=== PATIENT | female | born 1945 | race African-American/Black ===

== ENCOUNTER 2019-08-18 04:19 | Inpatient (IN) | payer OTHER ==
[~2019-08-18] VITALS: Ht 157.5 cm; Wt 45.4 kg
[2019-08-18 04:22] VITALS: BP 161/82
[2019-08-18 05:16] LABS: ABSOLUTE NEUTROPHILS 5.6 thou/uL (1.4-8.2); BASOPHILS 0.4 % (0.0-2.0); EOSINOPHILS 0.6 % (0.0-3.0); HEMATOCRIT 39.9 % (37.0-47.0); HEMOGLOBIN 12.9 gm/dL (12.0-15.0); LYMPHOCYTES 19.6 % (24.0-44.0); MCH 28.6 pg (26.0-34.0); MCHC 32.3 g/dL (28.0-37.0); MCV 88.5 fL (80.0-100.0); MONOCYTES 4.8 % (1.0-8.0); PLATELET COUNT 277 thou/uL (150-400); POLYS 74.6 % (36.0-66.0); RBC 4.51 mil/uL (4.20-5.00); RDW 15.5 % (10.5-14.5); WBC 7.5 thou/uL (4.0-11.0)
[2019-08-18 05:21] LABS: CALCIUM 8.9 mg/dL (8.5-10.1); POTASSIUM 3.4 mmol/L (3.5-5.1)
[2019-08-18 05:31] LABS: ALBUMIN 3.7 g/dL (3.4-5.0); TOTAL BILIRUBIN 0.3 mg/dL (<0.1-1.0); TOTAL PROTEIN 7.8 g/dL (6.4-8.2); TROPONIN-I 0.18 ng/mL (<0.06)
[2019-08-18 05:46] LABS: INR 1.2; PROTIME 12.7 Seconds (9.3-11.4)
[2019-08-18 06:14] LABS: D-DIMER 1.08 ug/mLFEU (0.19-0.50)
[2019-08-18 06:34] VITALS: BP 135/75
[2019-08-18 07:45] VITALS: BP 130/68
[2019-08-18 08:32] LABS: URINE BILIRUBIN NEGATIVE (Negative); URINE BLOOD NEGATIVE (Negative); URINE CLARITY CLEAR; URINE COLOR YELLOW; URINE GLUCOSE-RANDOM* NEGATIVE (Negative); URINE KETONES NEGATIVE (Negative); URINE NITRITE-REFLEX NEGATIVE (Negative); URINE PROTEIN (DIPSTICK) NEGATIVE (Negative); URINE UROBILINOGEN 0.2 E.U./dl (0.2-1.0)
[2019-08-18 08:47] LABS: URINE LEUKOCYTES-REFLEX 2+ (Negative)
[2019-08-18 08:52] LABS: CASTS None Seen /LPF (None Seen); CRYSTALS None Seen /LPF (None Seen); SQUAMOUS 0-3 Few /LPF (0-3); URINE RBC None Seen /HPF (0-2); URINE WBC-REFLEX 6-15 Few /HPF (0-5)
[2019-08-18 08:53] LABS: BACTERIA-REFLEX 1-9 Few /HPF (None Seen)
--- NOTE | 2019-08-18 10:29 | EKG ---
[address] [place] [address] ELECTROCARDIOGRAM REPORT Name: GREGORIA BARAHONA Room #: 361-P ADM IN M.R.#: [id number] Admission: 08/18/19 Attend Phys: Aguilar Womack MD Discharge: Date of : 45 Report #: [id number] THIS REPORT FOR: //name// [facility] ED Test Date: 2019-08-18 Test Time: 04:41:18 Pat Name: GREGORIA BARAHONA Department: Room: 361 Gender: F Arm Rest Builder: MPARK : 1945 Requested By: Le Simpson Order Number: [id number] MD: Fritz Gonzalez Measurements Intervals [place] Rate: 96 P: 63 W[place]: 161 QRS: -43 QRSD: 166 T: 114 QT: 441 QTc: 558 Interpretive Statements Sinus rhythm Left atrial enlargement Left bundle branch block No previous ECG available for comparison Electronically Signed On 08-18-2019 10:29:02 OPERATIONS RESEARCH ANALYST by Fritz Gonzalez [email or web address] <ELECTRONICALLY SIGNED> By: Fritz Gonzalez MD 08/18/19 1029 0441 0441 Fritz Gonzalez MD /CARLA
--- NOTE | 2019-08-18 11:14 | HC ---
[facility] [place] [address] CONSULTATION Name: GREGORIA BARAHONA Room #: 361-P [facility] IN M.R.#: [id number] Admission: 08/18/19 Attend Phys: Aguilar Womack MD Discharge: Date of : 45 Report #: [id number] THIS REPORT FOR: //name// CC: Aguilar Barajas DATE OF SERVICE: 08/18/2019 CARDIOLOGY CONSULTATION INDICATION: Syncope. HISTORY OF PRESENT ILLNESS: This is a pleasant 74-year-old female with a history of hypercholesterolemia, presenting with a syncopal episode. Around 3:30 a.m. this morning, she had gone to the bathroom to urinate. She was standing at the sink washing up when she apparently started to make some gurgling noises. Her had heard this and went to the bathroom. She was about to collapse, appear diaphoretic. Her caught her and helped her get back to the bed. She reports that she was unconscious for quite some time. The patient denies any chest pains, dyspnea or palpitations prior to the event. She reports no recent episodes of fever, chills or diarrhea. She has been eating as per her normal. She has been eating without any major issues. Her reports that she walks a little slower and has to rest at times. There is no history of chest pains or dyspnea with exertion. PAST MEDICAL HISTORY: Denies any history of hypertension, diabetes, CAD or CVA. Has hypercholesterolemia, not on medication. The reports that she has been getting more forgetful, has not had any formal evaluation for Alzheimer's. ALLERGIES: None. MEDICATIONS: None. SOCIAL HISTORY: Denies tobacco or alcohol use. FAMILY HISTORY: Negative for premature CAD. REVIEW OF SYSTEMS: A full 10-point review of systems performed. Only the pertinent positives and negatives are described in the HPI. PHYSICAL EXAMINATION: VITAL SIGNS: Blood pressure is 130/70, heart rate is 90 beats per minute. GENERAL APPEARANCE: An elderly appearing female in no acute distress. HEENT: Normocephalic, atraumatic. Oral mucosa moist. NECK: Supple. LUNGS: Slightly diminished breath sounds at the bases. [facility] [address] [place] [address] CONSULTATION Name: GREGORIA BARAHONA Room #: 361-P [facility] IN .R.#: [id number] Admission: 08/18/19 Attend Phys: Aguilar Womack MD Discharge: Date of : 45 Report #: [id number] CARDIAC: Regular rate and rhythm, S1, S2 positive. ABDOMEN: Soft, nontender. EXTREMITIES: No edema, no cyanosis. ECG reveals sinus rhythm, left bundle-branch block. LABORATORY VALUES: Troponin is 0.18 and 0.17. White count 7.5, hemoglobin is 12.9, creatinine is 1.0. ASSESSMENT AND PLAN: 1. Syncope, by the patient's history, may be related to a vasovagal event. It occurred after she had gone to the bathroom. A CT scan of the head is negative for acute process. I did recommend staying well hydrated. We will need to obtain an echo and an ischemic evaluation. 2. Minimal troponin elevation/left bundle branch block, no baseline ECG to compare. She does not offer any complaints of angina or dyspnea. However, the troponin elevation is concerning. I have discussed with the patient and her the pros and cons of noninvasive stress testing versus cardiac catheterization. They would like to proceed with a stress test and echocardiogram first. 3. Hypercholesterolemia, continue with Dietary restrictions. 4. Memory loss, may need a dementia workup. <ELECTRONICALLY SIGNED> By: Fritz Gonzalez MD 08/18/19 1114 0900 0936 Fritz Gonzalez MD /nt
[2019-08-18 11:20] VITALS: BP 142/83
[2019-08-18 15:23] VITALS: BP 126/76
[2019-08-18 19:20] VITALS: BP 129/78
[2019-08-19 03:56] VITALS: BP 122/66
[2019-08-19 08:21] VITALS: BP 143/83
--- NOTE | 2019-08-19 14:26 | 2DMMODE ---
[facility] [address] [place] [address] 2 D/M-MODE ECHOCARDIOGRAM Name: GREGORIA BARAHONA Room #: 361-P [facility] IN .R.#: [id number] Admission: 08/18/19 Attend Phys: Aguilar Womack MD Discharge: Date of : 45 Report #: [id number] THIS REPORT FOR: //name// APPROVED REPORT Study performed: 08/19/2019 13:32:53 EXAM: Comprehensive 2D, Doppler, and color-flow Echocardiogram Patient Location: Bedside Room #: 361 Status: routine BSA: 1.42 HR: 72 bpm BP: 143/83 mmHg Rhythm: NSR Other Information Study Quality: Good Indications Syncope Elevated Troponin Hypertension/HDD 2D Dimensions RVDd: 37.72 mm IVSd: 13.05 (7-11mm) LVOT Diam: 16.80 (18-24mm) LVDd: 50.01 mm PWd: 13.96 (7-11mm) Ascending Ao: 32.86 (22-36mm) LVDs: 44.30 (25-40mm) Aortic Root: 29.54 mm IVC: 13.00 mm Volumes Left Atrial Volume (Systole) Single Plane 4CH: 54.62 mL Single Plane 2CH: 90.80 mL LA ESV Index: 54.00 mL/m2 Aortic Valve AoV Peak Jose.: 1.50 m/s AO Peak Gr.: 8.98 mmHg LVOT Max P.35 mmHg LVOT Max V: 1.16 m/s LEONARDA Vmax: 1.71 cm2 Pulmonary Valve PV Peak Jose.: 1.20 m/s PV Peak Gr.: 5.[address] [facility] [address] [place] [address] 2 D/M-MODE ECHOCARDIOGRAM Name: GREGORIA BARAHONA Room #: 361-[facility] IN [facility]#: [id number] Admission: 08/18/19 Attend Phys: Aguilar Womack MD Discharge: Date of : 45 Report #: [id number] Tricuspid Valve TR Peak Jose.: 2.75 m/s TR Peak Gr.: 30.14 mmHg PA Pressure: 35.00 mmHg Left Ventricle The left ventricle is normal size. There is hypokinesis of the anteroseptal and inferior randhawa. Mild concentric left ventricular hypertrophy. Left ventricular ejection fraction is severely decreased. LVEF is 25%. Grade I - abnormal relaxation pattern. Right Ventricle The right ventricle is normal size. The right ventricular systolic function is normal. Atria Left atrium is dilated. The right atrium size is normal. Aortic Valve The aortic valve is normal in structure. No aortic regurgitation is present. There is no aortic valvular stenosis. Mitral Valve The mitral valve is normal in structure. Mild to moderate mitral regurgitation. No evidence of mitral valve stenosis. Tricuspid Valve The tricuspid valve is normal in structure. There is trace to mild tricuspid regurgitation. Estimated PAP 35 mmHg. There is mild pulmonary hypertension. Pulmonic Valve The pulmonary valve is normal in structure. There is no pulmonic valvular regurgitation. Great Vessels The aortic root is normal in size. IVC is normal in size and collapses >50% with inspiration. Pericardium Small circumferential pericardial effusion. <Conclusion> The left ventricle is normal size. Mild concentric left ventricular hypertrophy. [facility] [address] [address] 2 D/M-MODE ECHOCARDIOGRAM Name: GREGORIA BARAHONA Room #: 361-P ADM IN M.R.#: [id number] Admission: 08/18/19 Attend Phys: Aguilar Womack MD Discharge: Date of : 45 Report #: [id number] Left ventricular ejection fraction is severely decreased. Grade I - abnormal relaxation pattern. The right ventricle is normal size. Left atrium is dilated. The aortic valve is normal in structure. Mild to moderate mitral regurgitation. There is trace to mild tricuspid regurgitation. Estimated PAP 35 mmHg. <ELECTRONICALLY SIGNED> By: Fritz Gonzalez MD 08/19/19 1425 24 24 Fritz Gonzalez MD /INF
[2019-08-19 17:06] VITALS: BP 118/70
[2019-08-19 19:40] VITALS: BP 117/69
[2019-08-20] VITALS (13 sets, daily range): BP systolic 118–142; BP diastolic 59–80
[2019-08-20 08:32] LABS: ANION GAP 5 mmol/L (7-16); BUN 19 mg/dL (7-18); CALCIUM 8.7 mg/dL (8.5-10.1); CHLORIDE 106 mmol/L (98-107); CHOLESTEROL 245 mg/dL (<200); CO2 30 mmol/L (21-32); CREATININE 0.8 mg/dL (0.6-1.0); GLUCOSE 96 mg/dL (74-106); HDL CHOLESTEROL 77 mg/dL (>40); LDL CHOLESTEROL 152 mg/dL (<100); POTASSIUM 4.1 mmol/L (3.5-5.1); SODIUM 141 mmol/L (136-145); TC:HDL 3.2 Ratio (Not establshd); TRIGLYCERIDE 81 mg/dL (<150); VLDL 16 mg/dL (<40)
--- NOTE | 2019-08-20 11:26 | CATHLAB ---
[place] [address] [address] [facility] [place] [address] INVASIVE PROCEDURE REPORT Name: GREGORIA BARAHONA Room #: 216-P [facility] IN ..#: [id number] Admission: 08/18/19 Attend Phys: Aguilar Womack MD Discharge: Date of : 45 Report #: [id number] THIS REPORT FOR: //name// APPROVED REPORT Study performed: 08/20/2019 07:41:15 Patient Details Patient Status: Out-Patient Room #: The patient is a 74 year-old female Event Personnel Fritz Gonzalez Naturopathic Oncology Provider, José Miguel Jessica, Tsering Fraga RTR Narayan Rosa Marie RN RN, Neena Tsang RN insulation technician Performed Left Heart Cath w/or w/o Coronaries [id number] [facility] Indication Dyspnea, CardiomyopathyPositive stress test, The patient presented with a syncopal episode, found to have an elevated troponin level with a left bundle branch block. Risk Factors HypercholesterolemiaPhysical Activity Procedure Narrative The Right Groin^ was infiltrated with 1% Lidocaine subcutaneous anesthesia. A PINNACLE 4FR Sheath #[id number] sheath was inserted into the RFA^. Coronary angiography was performed using coronary diagnostic catheters. The right coronary system was accessed and visualized with a JR4 catheter. The left coronary system was accessed and visualized with a JL4 catheter. The left ventricle was accessed and visualized with a PIGTAIL catheter. Left ventricular/Aortic Valve gradient assessed . Hemostasis was obtained with manual pressure following sheath removal without any complications. The patient tolerated the procedure well and there were no complications associated with the procedure. There was no hematoma. Intraoperative Conscious Sedation Sedation start time: 8.28 Case end Time: 8.57 Fentanyl 25 mcg Versed 0.5 mg [facility] [address] [place] [address] INVASIVE PROCEDURE REPORT Name: GREGORIA BARAHONA Room #: 216-P [facility] IN [facility].#: [id number] Admission: 08/18/19 Attend Phys: Aguilar Womack MD Discharge: Date of : 45 Report #: [id number] Fluoro Time: 2.09 minutes Dose: DAP 983.00 cGycm2 130 mGy Contrast Type and Amount: Omnipaque 55 ml Coronary Angiography The patient's coronary anatomy is right dominant. Diagnostic Cath Left Main The left main artery is a large-caliber vessel, patent with no flow-limiting lesions. LAD The LAD is a moderate size caliber vessel, traversing the anterior wall and wrapping around the apex. This vessel is patent with no flow-limiting lesions. Diagonal 1 This is a small-caliber vessel, patent with no flow-limiting lesions. Diagonal 2 This is a small to moderate size caliber vessel with a mild to moderate ostial stenosis, 30-40%. Circumflex This is a moderate size caliber vessel with a mild stenosis at the proximal segment, 30%. OM1 This is a small-caliber vessel, patent with no flow-limiting lesions. OM2 This is a moderate size caliber vessel, patent with no flow-limiting lesions. Right Coronary This is a moderate size caliber vessel, dominant with no flow-limiting lesions. R PDA This is a moderate size caliber vessel, patent with no flow-limiting lesions. RPLV This is a moderate size caliber vessel, patent with no flow-limiting lesions. Left Ventriculography Left Ventriculography was not performed. Ejection Fraction was 25-30% based off patient's Nuclear Cardiac Stress Test. Hemodynamics The aortic pressure is 139/64 mmHg with a mean of 26 mmHg. The left ventricular pressure is 138/11 mmHg with a mean of mmHg. The left ventricular end diastolic pressure is 19 mmHg. Conclusion 1. Severe, nonischemic cardiomyopathy. 2. Mild, nonobstructive CAD. [address] [address] INVASIVE PROCEDURE REPORT Name: GREGORIA BARAHONA Room #: 216-P [facility] IN ..#: [id number] Admission: 08/18/19 Attend Phys: Aguilar Womack MD Discharge: Date of : 45 Report #: [id number] 3. Recommend guideline directed medical therapy and risk factor management. <ELECTRONICALLY SIGNED> By: Fritz Gonzalez MD 08/20/19 1125 24 24 Fritz Gonzalez MD /INF
[2019-08-21 01:33] VITALS: BP 112/62
[2019-08-21 02:31] LABS: GLYCOHEMOGLOBIN (HGB A1C) 5.7 % (4.8-5.6)
[2019-08-21 04:02] VITALS: BP 112/63
[2019-08-21 05:33] LABS: HEMATOCRIT 34.6 % (37.0-47.0); HEMOGLOBIN 11.2 gm/dL (12.0-15.0); MCH 28.7 pg (26.0-34.0); MCHC 32.3 g/dL (28.0-37.0); RBC 3.89 mil/uL (4.20-5.00); RDW 15.1 % (10.5-14.5); WBC 6.5 thou/uL (4.0-11.0)
[2019-08-21 07:25] LABS: CALCIUM 8.7 mg/dL (8.5-10.1); CREATININE 0.8 mg/dL (0.6-1.0); POTASSIUM 4.1 mmol/L (3.5-5.1)
[2019-08-21 07:30] VITALS: BP 121/71
[2019-08-21] MEDS ORDERED: COREG6.25 MG PO (09:35)
[2019-08-21] MEDS ORDERED: ASPIR 8181 MG PO (09:35)
[2019-08-21 11:00] VITALS: BP 124/62
[2019-08-21] MEDS ORDERED: ACETAMINOPHEN325 M1 PO (11:59)
[2019-08-21] MEDS ORDERED: CALTRATE-600 W1 EACH PO (11:59)
[2019-08-21 12:12] VITALS: BP 124/62
== END 2019-08-21 13:46 | disposition home or self-care (01) | DRG 287 ==
LOC: ER 04:19 → 3W 06:11 → EROBS 06:11 → 3W 07:56 → 2N 08-20 09:29 → ENTRNSPT 08-21 13:25 → EDTRNSPTSTS 08-21 13:27 → 2N 08-21 13:46
PROVIDERS: Emergency Medicine Emergency Medical Services; Internal Medicine Cardiovascular Disease; ADMIT Hospitalist
PROC: B2111ZZ Fluoroscopy of Multiple Coronary Arteries using Low Osmolar Contrast (ICD-10-PCS; principal; 2019-08-18)
PROC: 4A023N7 Measurement of Cardiac Sampling and Pressure, Left Heart, Percutaneous Approach (ICD-10-PCS; principal; 2019-08-18)
DX: I25.10 Atherosclerotic heart disease of native coronary artery without angina pectoris (principal); E46 Unspecified protein-calorie malnutrition; I44.7 Left bundle-branch block, unspecified; I42.8 Other cardiomyopathies; E78.00 Pure hypercholesterolemia, unspecified; R41.3 Other amnesia; I50.9 Heart failure, unspecified; G47.00 Insomnia, unspecified; E78.5 Hyperlipidemia, unspecified; I34.0 Nonrheumatic mitral (valve) insufficiency; Z79.82 Long term (current) use of aspirin; Z68.1 Body mass index [BMI] 19.9 or less, adult; Z79.899 Other long term (current) drug therapy
CPT/HCPCS: 10081; 10879

== ENCOUNTER → 2019-09-03 | Outpatient (CLI) | payer OTHER ==
[~2019-09-03] MED LIST: ACETAMINOPHEN325 M1 PO; ASPIR 8181 MG PO; CALTRATE-600 W1 EACH PO; COREG6.25 MG PO
== END ==
LOC: SJCVC 16:13
DX: I25.10 Atherosclerotic heart disease of native coronary artery without angina pectoris (principal); I42.9 Cardiomyopathy, unspecified; E78.00 Pure hypercholesterolemia, unspecified; R94.31 Abnormal electrocardiogram [ECG] [EKG]; I44.7 Left bundle-branch block, unspecified; Z79.82 Long term (current) use of aspirin

== ENCOUNTER 2020-07-07 16:14 | Inpatient (IN) | payer OTHER ==
[~2020-07-07] VITALS: Ht 154.9 cm; Wt 49.9 kg
[2020-07-07 16:46] VITALS: BP 134/86
[2020-07-07 18:31] LABS: ABSOLUTE NEUTROPHILS 4.2 thou/uL (1.4-8.2); BASOPHILS 0.7 % (0.0-2.0); EOSINOPHILS 0.4 % (0.0-3.0); HEMATOCRIT 34.5 % (37.0-47.0); HEMOGLOBIN 11.1 gm/dL (12.0-15.0); LYMPHOCYTES 17.8 % (24.0-44.0); MCH 27.6 pg (26.0-34.0); MCHC 32.1 g/dL (28.0-37.0); MCV 85.9 fL (80.0-100.0); MONOCYTES 7.5 % (1.0-8.0); PLATELET COUNT 249 thou/uL (150-400); POLYS 73.6 % (36.0-66.0); RBC 4.02 mil/uL (4.20-5.00); RDW 15.7 % (10.5-14.5); WBC 5.7 thou/uL (4.0-11.0)
[2020-07-07 18:34] LABS: CALCIUM 9.4 mg/dL (8.5-10.1); POTASSIUM 4.1 mmol/L (3.5-5.1)
[2020-07-07 18:45] LABS: ALBUMIN 3.2 g/dL (3.4-5.0); TOTAL BILIRUBIN 1.1 mg/dL (0.2-1.0); TOTAL PROTEIN 6.6 g/dL (6.4-8.2); TROPONIN-I 0.31 ng/mL (<0.06)
[2020-07-07 20:17] VITALS: BP 129/90
[2020-07-07 21:32] VITALS: BP 132/79
[2020-07-07 21:45] VITALS: BP 147/78
--- NOTE | 2020-07-07 21:45 | NUR ---
Pt. admitted to the unit from the emergency room accompanied by staff. She is alert and oriented times three. Pt. offers no c/o pain or discomfort. Bed alarm is on.
[2020-07-08] VITALS: BP 116/60
[2020-07-08 04:23] VITALS: BP 121/80
[2020-07-08 06:10] LABS: HEMATOCRIT 34.2 % (37.0-47.0); HEMOGLOBIN 10.8 gm/dL (12.0-15.0); MCH 27.2 pg (26.0-34.0); MCHC 31.6 g/dL (28.0-37.0); MCV 86.2 fL (80.0-100.0); RBC 3.96 mil/uL (4.20-5.00); RDW 15.7 % (10.5-14.5); WBC 5.8 thou/uL (4.0-11.0)
[2020-07-08 06:33] LABS: ANION GAP 14 mmol/L (7-16); BUN 17 mg/dL (7-18); CALCIUM 8.7 mg/dL (8.5-10.1); CHLORIDE 107 mmol/L (98-107); CO2 26 mmol/L (21-32); GLUCOSE 101 mg/dL (74-106); POTASSIUM 3.6 mmol/L (3.5-5.1); SODIUM 147 mmol/L (136-145)
--- NOTE | 2020-07-08 06:45 | NUR ---
Pt. refused to have ivp lasix given. She was educated on the medication, but pt. kept telling me no,no.
[2020-07-08 08:18] LABS: CHOLESTEROL 175 mg/dL (<200); HDL CHOLESTEROL 44 mg/dL (>40); LDL CHOLESTEROL 114 mg/dL (<100); TRIGLYCERIDE 86 mg/dL (<150); VLDL 17 mg/dL (<40)
--- NOTE | 2020-07-08 08:36 | 2DMMODE ---
[facility] [place] [address] 2 D/M-MODE ECHOCARDIOGRAM Name: GREGORIA BARAHONA Room #: 204-P ADM IN M.R.#: [id number] Admission: 07/07/20 Attend Phys: Brian Angel MD Discharge: Date of : 45 Report #: [id number] THIS REPORT FOR: cc: Maren Barajas RN, Anne H. RN Lundgren, Craig H. MD [facility] ~ APPROVED REPORT Study performed: 07/08/2020 07:18:57 EXAM: Comprehensive 2D, Doppler, and color-flow Echocardiogram Patient Location: Bedside Room #: 204 Status: routine BSA: 1.40 HR: 90 bpm BP: 121/80 mmHg Rhythm: LBBB Other Information Study Quality: Excellent Indications Elevated troponin, edema, short of breath. Hx: CHF, mild CAD, cardiomyopathy. 2D Dimensions RVDd: 39.47 mm IVSd: 12.01 (7-11mm) LVOT Diam: 19.80 (18-24mm) LVDd: 58.42 mm PWd: 12.11 (7-11mm) Ascending Ao: 34.45 (22-36mm) LVDs: 52.17 (25-40mm) Aortic Root: 33.78 mm Volumes Left Atrial Volume (Systole) Single Plane 4CH: 101.22 mL Single Plane 2CH: 167.48 mL LA ESV Index: 105.00 mL/m2 Aortic Valve AoV Peak Jose.: 1.02 m/s AO Peak Gr.: 4.18 mmHg LVOT Max P.80 mmHg LVOT Max V: 0.67 m/s LEONARDA Vmax: 2.02 cm2 [facility] [address] [place] [address] 2 D/M-MODE ECHOCARDIOGRAM Name: GREGORIA BARAHONA Room #: 204-P [facility] IN [facility]#: [id number] Admission: 07/07/20 Attend Phys: Brian Angel, Discharge: Date of : 45 Report #: [id number] Mitral Valve E/A Ratio: 0.8 MV Decel. Time: 119.65 ms MV E Max Jose.: 0.91 m/s MV A Jose.: 1.12 m/s MV PHT: 34.70 ms IVRT: 65.74 ms Pulmonary Valve PV Peak Jose.: 0.79 m/s PV Peak Gr.: 2.51 mmHg Tricuspid Valve TR Peak Jose.: 2.93 m/s RAP Estimate: 10.00 mmHg TR Peak Gr.: 34.34 mmHg PA Pressure: 44.00 mmHg Left Ventricle Left ventricle is at the upper limits of normal. There is global hypokinesis of the left ventricle. Mild concentric left ventricular hypertrophy. Left ventricular systolic function is severely decreased. LVEF 25%. Mild diastolic dysfunction Right Ventricle The right ventricle is normal size. Right ventricle is mildly hypokinetic. Atria Left atrium is severely dilated. Right atrium is mildly dilated. Aortic Valve The aortic valve is normal in structure. No aortic regurgitation is present. There is no aortic valvular stenosis. Mitral Valve The mitral valve is normal in structure. Severe mitral regurgitation. Tricuspid Valve The tricuspid valve is normal in structure. Trace tricuspid regurgitation. Estimated PAP 40-45mmHg. Pulmonic Valve The pulmonary valve is normal in structure. Mild pulmonic regurgitation. [facility] [place] [address] [place] [address] 2 D/M-MODE ECHOCARDIOGRAM Name: GREGORIA BARAHONA Room #: 204-P ADM IN M.R.#: [id number] Admission: 07/07/20 Attend Phys: Brian Angel, Discharge: Date of : 45 Report #: [id number] Great Vessels The aortic root is normal in size. The ascending aorta is normal in size. IVC is normal in size and collapses <50% with inspiration. Pericardium Small circumferential pericardial effusion. Left pleural effusion. <Conclusion> Left ventricular systolic function is severely decreased. There is global hypokinesis of the left ventricle. LVEF 25%. Mild diastolic dysfunction Left atrium is severely dilated. The aortic valve is normal in structure. No aortic regurgitation or stenosis The mitral valve is normal in structure. Severe mitral regurgitation. Trace tricuspid regurgitation. Estimated PAP 40-45mmHg. Small circumferential pericardial effusion. In comparison with the study dated July 2019, left ventricular systolic function is similar, pericardial effusion is similar, mitral regurgitation is worse <ELECTRONICALLY SIGNED> By: Taiwo Vargas MD, FACC 07/08/20834 4 4 Taiwo Vargas MD, [facility] /INF
[2020-07-08 08:39] VITALS: BP 129/89
[2020-07-08 11:26] VITALS: BP 95/53
[2020-07-08 16:03] VITALS: BP 107/70
--- NOTE | 2020-07-08 16:31 | NUR ---
ASSESSMENT CHARTED - MEDS PER MAR - PATIENT GIVEN LASIX IMES 2 DOSES THIS SHIFT - GOOD RESPONSE - PATIENT INCONTINENT AND ALSO USING THE BSC. DIAZ DIET AND FLUIDS WITH NO CO'S OF NAUSEA. STATES PT CO'S OF LEG CRAMPS OCCASSIONALY. PT SEEN BY GEREATRICS TODAY AND TO HAVE SUPPLEMENT WITH MEALS. AT THE BEDSIDE FOR MOST OF THE DAY. NO CO'S AT THE PRESENT TIME.
[2020-07-08 19:18] VITALS: BP 106/71
[2020-07-09 04:10] VITALS: BP 103/59
--- NOTE | 2020-07-09 04:10 | NUR ---
NO EVENTS OVERNIGHT. PT AO X 3 AT THE BEGINNING OF THE SHIFT BUT GOT CONFUSED THE NIGHT PROGRESSED. IMPULSSIVE GETTING OUT OF BED. FALL PRECAUTIONS IN PLACE. DENIES PAIN. REFUSED SOME EVENING MEDICATIONS. WILL CONTINUE WITH POC
[2020-07-09 05:34] LABS: HEMATOCRIT 34.4 % (37.0-47.0); HEMOGLOBIN 10.9 gm/dL (12.0-15.0); MCHC 31.6 g/dL (28.0-37.0); MCV 85.3 fL (80.0-100.0); RBC 4.03 mil/uL (4.20-5.00); RDW 15.6 % (10.5-14.5)
[2020-07-09 05:53] LABS: CALCIUM 8.8 mg/dL (8.5-10.1); MAGNESIUM 2.2 mg/dL (1.8-2.4); POTASSIUM 3.7 mmol/L (3.5-5.1); TROPONIN-I 0.3 ng/mL (<0.06)
[2020-07-09 08:03] VITALS: BP 109/76
[2020-07-09] MEDS ORDERED: KLOR-CON 1010 MEQ PO (08:25)
[2020-07-09] MEDS ORDERED: ASPIR 8181 MG PO (08:25)
[2020-07-09] MEDS ORDERED: LIPITOR40 MG PO (08:25)
[2020-07-09] MEDS ORDERED: COZAAR 25 MG TA25 M2 PO (08:25)
[2020-07-09] MEDS ORDERED: COREG6.25 MG PO (08:25)
[2020-07-09] MEDS ORDERED: LASIX 40 MG TAB40 M1 PO (08:25)
[2020-07-09 11:51] VITALS: BP 84/52
--- NOTE | 2020-07-09 16:14 | NUR ---
ASSESSMENT CHARTED - MEDS PER SEP - TO CHANGE TO PO LASIX TOMORROW. IV LASIX GIVEN X 1 DOSE. PT REFUSED FLU VACCINE. DIAZ DET AND FLUIDS WITH NO CO'S OF NAUSEA. NO CO'S OF PAIN. PT HAS BEEN SEEN BY [facility] -UP IN THE CHAIR FOR THE DAY - HAS BEEN HER [facility] PATIENT. NO CO'S AT THE PRESENT TIME. STATES SHE IS COMFORTABLE WITH NO NEEDS.
[2020-07-09 16:15] VITALS: BP 95/63
[2020-07-09 20:54] VITALS: BP 119/81
[2020-07-10 03:30] VITALS: BP 108/74
--- NOTE | 2020-07-10 07:24 | NUR ---
PATIENTS CARES WERE ASSUMED AT SHIFT CHANGE. PATIENT WAS ASSESSED AND MEDS WERE PASSED. PATIENT DID SLEEP MOST OF THIS SHIFT. SPOKE WITH THE DAUGHTER (FRANCISCO) PATIENT AND THE FAMILY REFUSED THE STATIN MED ORDERED AT 2100 WAS REFUSED. DAUGHTER STATED THAT THE PATIENT HAS OTHER REMIDIES. THE BED IS IN A LOW AND LOCKED POSITION.
[2020-07-10 07:25] VITALS: BP 111/76
[2020-07-10 09:48] VITALS: BP 111/76
--- NOTE | 2020-07-10 09:50 | NUR ---
Case opened to [facility] for dc planning. Filter Tank Operator visited with the pt and her spouse at bedside. Spouse reports that the pts memory has become worse over the past 6mos to a year. He has not been involved in her medication mngt or f/u appts but now sees that he will have to take charge of those things. The pt stopped taking her meds several months ago and has not gone to a f/u appt with cardiology. He provides 24hr supervision and works out of the home. He is a traffic operator and is occassional out of the house for short periods. They have 4 adult children but 3 live out of town and the one locally is a single parent. He feels they have limited resources for private duty but too many resources for [place] medicaid. He is interested in HH support to help with CHF education and med mngt and therapy for home safetly and home ex program d/t several falls. The pt may need a rwalker as well. Pt agreeable to HH and a rwalker if needed. They live in a split level home with stairs in all directions. Will see how she does in therapy today and start HH referrals and ask for Rwalker script. No hh agency preference indicated as they have not had that service before. Will follow.
[2020-07-10 11:55] VITALS: BP 100/65
--- NOTE | 2020-07-10 12:00 | NUR ---
FAXED REFERRAL TO [facility] SPOKE WITH [facility] IN INTAKE THEY CAN ACCEPT. PT DISCHARGING TODAY TO HOME WITH HH FAXED DC ORDERS/SUMMARY TO [facility] HH RECEIVED CONFIRMATION AND THEY WILL ARRANGE VISITS WITH PT.
--- NOTE | 2020-07-10 13:02 | NUR ---
ASSUMED CARE AT CHANGE OF SHIFT. ALERTX3 WITH CONFUSION, DENIES SOB, DENIES PIAN, QUESTIONS REGARDING MEDICATIONS REVIEWED BY TUTU BLOOM FROM CARDIOLOGY. PT TO DC THIS AFTERNOON WITH HH.
[2020-07-10] MEDS ORDERED: [UNRECOGNIZED DRUG - OTHER] (14:13)
[2020-07-10] MEDS ORDERED: WALKER (14:13)
--- NOTE | 2020-07-10 15:03 | NUR ---
Pt dcing home today with HH. Dc facilities planner has faxed and confirmed soc with Kristian VILLANUEVA. A rwalker has been issued to the pt for home use from the [facility] and script provided to their liason. No other needs noted.
--- NOTE | 2020-07-13 07:55 | EKG ---
[address] [place] [address] ELECTROCARDIOGRAM REPORT Name: GREGORIA BARAHONA Room #: 204-P [facility] IN .R.#: [id number] Admission: 07/07/20 Attend Phys: Brian Angel MD Discharge: 07/10/20 Date of : 45 Report #: [id number] [facility] ED Test Date: 2020-07-07 Test Time: 18:18:47 Pat Name: GREGORIA BARAHONA Department: Room: [facility] Gender: F [employer] Center Technician: JCHAIJO : 1945 Requested By: Jazmyne Sharp Order Number: [id number] MD: Wili Lebron Measurements Intervals [place] Rate: 94 P: 49 AK: 148 QRS: -49 QRSD: 166 T: 117 QT: 448 QTc: 561 Interpretive Statements Sinus rhythm Left atrial enlargement Left bundle branch block Compared to ECG 08/18/2019 04:41:18 No significant changes Electronically Signed On 07-08-2020 7:26:56 SUPERVISOR PUBLIC MESSAGE SERVICE by Wili Lebron [email or web address] <ELECTRONICALLY SIGNED> By: Wili Lebron MD, [facility] 07/08/20 0726 17 17 Wili Lebron MD, FACC /EPI
== END 2020-07-10 16:34 | disposition home health service (06) | DRG 302 ==
LOC: ER 16:14 → 2N 19:59 → EROBS 19:59 → 2N 21:42
PROVIDERS: Nurse Practitioner Family; Physician Assistant; ADMIT Internal Medicine; ATTEND Internal Medicine
DX: I25.10 Atherosclerotic heart disease of native coronary artery without angina pectoris (principal); I50.23 Acute on chronic systolic (congestive) heart failure; E44.1 Mild protein-calorie malnutrition; I42.8 Other cardiomyopathies; R77.8 Other specified abnormalities of plasma proteins; E78.5 Hyperlipidemia, unspecified; F03.90 Unspecified dementia, unspecified severity, without behavioral disturbance, psychotic disturbance, mood disturbance, and anxiety; M81.0 Age-related osteoporosis without current pathological fracture; G47.00 Insomnia, unspecified; R63.4 Abnormal weight loss; I34.0 Nonrheumatic mitral (valve) insufficiency; Z79.899 Other long term (current) drug therapy; Z68.20 Body mass index [BMI] 20.0-20.9, adult; Z91.14 Patient's other noncompliance with medication regimen; Z79.82 Long term (current) use of aspirin; Z28.21 Immunization not carried out because of patient refusal
CPT/HCPCS: 10081

== ENCOUNTER → 2020-07-27 | Outpatient (CLI) | payer OTHER ==
[~2020-07-27] MED LIST changes: +COZAAR 25 MG TA25 M2 PO; +KLOR-CON 1010 MEQ PO; +LASIX 40 MG TAB40 M1 PO; +LIPITOR40 MG PO; +WALKER; +[UNRECOGNIZED DRUG - OTHER]
== END ==
LOC: SJCVC 11:32
PROVIDERS: ATTEND Internal Medicine Cardiovascular Disease
DX: R94.31 Abnormal electrocardiogram [ECG] [EKG] (principal); I44.7 Left bundle-branch block, unspecified; I42.9 Cardiomyopathy, unspecified; I25.10 Atherosclerotic heart disease of native coronary artery without angina pectoris; E78.00 Pure hypercholesterolemia, unspecified; I11.0 Hypertensive heart disease with heart failure; I50.9 Heart failure, unspecified; R41.3 Other amnesia; Z79.82 Long term (current) use of aspirin; Z79.899 Other long term (current) drug therapy

== ENCOUNTER → 2020-10-26 | Outpatient (CLI) | payer OTHER | LOC: SJCVC 10:54 | PROVIDERS: ATTEND Internal Medicine Cardiovascular Disease | DX: R94.31 Abnormal electrocardiogram [ECG] [EKG] (principal); I49.3 Ventricular premature depolarization; I44.7 Left bundle-branch block, unspecified; I42.9 Cardiomyopathy, unspecified; I25.10 Atherosclerotic heart disease of native coronary artery without angina pectoris; I25.5 Ischemic cardiomyopathy; I11.0 Hypertensive heart disease with heart failure; I50.9 Heart failure, unspecified; E78.00 Pure hypercholesterolemia, unspecified; R55 Syncope and collapse; Z79.82 Long term (current) use of aspirin; Z79.899 Other long term (current) drug therapy ==

== ENCOUNTER → 2021-05-18 | Outpatient (CLI) | payer OTHER | END | disposition home or self-care (01) | LOC: SJCVCIMAG 08:51 | PROVIDERS: ATTEND Internal Medicine Cardiovascular Disease | DX: I08.0 Rheumatic disorders of both mitral and aortic valves (principal); I44.7 Left bundle-branch block, unspecified; R94.31 Abnormal electrocardiogram [ECG] [EKG]; I42.9 Cardiomyopathy, unspecified; I25.10 Atherosclerotic heart disease of native coronary artery without angina pectoris; E78.00 Pure hypercholesterolemia, unspecified; R55 Syncope and collapse; I50.9 Heart failure, unspecified; I11.0 Hypertensive heart disease with heart failure; Z79.82 Long term (current) use of aspirin; Z79.899 Other long term (current) drug therapy ==

== ENCOUNTER → 2021-06-08 | Outpatient (CLI) | payer OTHER | LOC: SJCVC 13:53 | PROVIDERS: ATTEND Internal Medicine Cardiovascular Disease | DX: R94.31 Abnormal electrocardiogram [ECG] [EKG] (principal); I44.7 Left bundle-branch block, unspecified; R00.1 Bradycardia, unspecified; I25.10 Atherosclerotic heart disease of native coronary artery without angina pectoris; I42.9 Cardiomyopathy, unspecified; I11.0 Hypertensive heart disease with heart failure; I50.9 Heart failure, unspecified; E78.5 Hyperlipidemia, unspecified; E78.00 Pure hypercholesterolemia, unspecified; Z79.82 Long term (current) use of aspirin; Z79.899 Other long term (current) drug therapy ==